=== PATIENT | male | born 1955 | race Caucasian/White ===

== ENCOUNTER → 2021-01-15 | Outpatient (CLI) | payer OTHER ==
[~2021-01-15] MED LIST: IODINE/POTASS IOD (LUGOLS) BOTTLE TOPICAL ONE
--- NOTE | 2021-01-16 18:55 | NM ---
EXAMINATION TYPE: NM DatScan Brain SPECT DATE OF EXAM: 01/15/2021 COMPARISON: NONE HISTORY: Trauma TECHNIQUE: 10 drops of Lugol's solution was administered 1 hour prior to injection as a thyroid bloc gage agent. After the administration of 4.58 mCi I-123 Ioflupane DaTscan. Images obtained 3 hours p ost injection. SPECT images of the brain were acquired with axial and coronal reconstructions. FINDINGS: The axial SPECT images demonstrate normal background activity. Accounting for head tilt, t here appears to be slight asymmetrically blunted comma-shaped appearance of the left corpus striatum. IMPRESSION: Slightly blunted striatal activity on the right may indicate early changes of idiopathic Parkinson's disease or Parkinsonian syndrome.
== END | disposition home or self-care (01) ==
LOC: RADNMMAIN 10:47
PROVIDERS: ATTEND Psychiatry & Neurology Neurology
DX: R25.1 Tremor, unspecified (principal)
CPT/HCPCS: 83519; 78803; 36415; A9584

== ENCOUNTER → 2022-12-23 | Outpatient (CLI) | payer MEDICARE ==
--- NOTE | 2022-12-23 11:31 | FL ---
Exam Date: 12/23/2022 11:18 AM. Modified barium swallow for dysphagia. Consistencies administered: Various consistency of barium. Fluoro time: 1 minute 2 seconds No images were sent to PACS. Please see speech pathology report. DAP: Not reported by machine [id number]
== END | disposition home or self-care (01) ==
LOC: RADFLMAIN 10:44
PROVIDERS: ATTEND Psychiatry & Neurology Neurology
DX: G20 Parkinson's disease (principal); R13.10 Dysphagia, unspecified
CPT/HCPCS: 74230